=== PATIENT | male | born 1995 | race American Indian/Alaskan Native ===

== ENCOUNTER 2019-04-04 08:48 | Emergency (ER) | payer SELFPAY ==
--- NOTE | 2019-04-04 09:12 | Emergency Department Report ---
ED Rash HPI - HPI Chief Complaint: Skin Rash Stated Complaint: BED BUGS Time Seen by Provider: 04/04/19 08:55 Duration: 3 Days Location: Upper Extremities, Lower Extremities Rash Symptoms: Yes Itching, No Facial Swelling, No Tongue/Oral Swelling, No Breathing Difficulties, No Choking Sensation, No Wheezing/Dyspnea, No Peeling, No Blistering, No Fever, No Lightheaded, No Malaise, No Myalgias Severity: mild Other History: This is a 20-year-old male presents to ED complaining of insect bites to his upper extremities. Patient was at a hotel in [place] where he stayed the add on hotel with 2 of his siblings and mother. All other family members sustained bites from being in this hotel. He denies fevers/chills/nausea vomiting or new symptoms. ED Review of Systems ROS: Stated complaint: BED BUGS Other details as noted in HPI Comment: All other systems reviewed and negative ED Past Medical Hx - Medications Home Medications: Home Medications Medication Instructions Recorded Confirmed Last Taken Type Permethrin 5% [Acticin 5% CREAM] 1 applicatio TP 1XW #1 tube 04/04/19 Unknown Rx Pramoxine HCl/Calamine [Calamine 1 applic TP DAILY #1 lotion 04/04/19 Unknown Rx Medicated Lotion] Triamcinolone 0.5% [Kenalog 0.5% 1 applic TP TID #1 tube 04/04/19 Unknown Rx CREAM] diphenhydrAMINE [Benadryl CAP] 25 mg PO QHS PRN #20 capsule 04/04/19 Unknown Rx Rash Exam - Exam General: Vital signs noted. No distress. Alert and acting appropriately. HEENT: No Periorbital Edema, No Conjuctival Injection, No Chemosis, No Perioral Edema, No Tongue Edema, No Uvular Edema, No Compromised Airway, No Drooling Lungs: Yes Good Air Exchange (Normal Breath Sounds), No Wheezes, No Ronchi, No Stridor, No Cough, No Labored Respirations, No Retractions, No Use of Accessory Muscles, No Other Abnormal Lung Sounds Heart: Yes Regular, No Murmur Skin: Yes Erythema (generalized insect bite felder), No Urticarial Rash, No Maculopapular Rash, No Morbilliform rash, No Bulla(e), No Excoriations, No Weeping, No Tenderness, No Edema, No Encrustations, No Other Other: Positive: Abdomen Normal, Neurologic Normal, Musculoskeletal Normal ED Medical Decision Making - Medical Decision Making 23-year-old male presents with a incident bites mostly associated from bedbugs. he will be treated for bedbugs. 2 members (mother and sister) of the household was treated on Wednesday for bedbugs Vital signs are normal patient is in no acute distress Discussed follow-up with primary care physician. Critical care attestation.: If time is entered above; I have spent that time in minutes in the direct care of this critically ill patient, excluding procedure time. ED Disposition Clinical Impression: Insect bite Disposition: DC-01 TO HOME OR SELFCARE Is pt being admited?: No Does the pt Need Aspirin: No Condition: Stable Instructions: Insect Bite or Sting (ED) Additional Instructions: Make sure to follow up with the primary care physician as discussed. Take all your medications as you've been prescribed. If you have any worsening symptoms or develop new symptoms please return to ED immediately. Referrals: [facility] [Provider Group] - 3-5 Days Forms: Work/School Release Form(ED) Time of Disposition: 09:13
[2019-04-04 09:52] VITALS: BP 128/72
== END 2019-04-04 10:27 | disposition home or self-care (01) ==
LOC: ED 08:48
DX: S40.861A Insect bite (nonvenomous) of right upper arm, initial encounter (principal); Z88.1 Allergy status to other antibiotic agents; S40.862A Insect bite (nonvenomous) of left upper arm, initial encounter; W57.XXXA Bitten or stung by nonvenomous insect and other nonvenomous arthropods, initial encounter; Y93.89 Activity, other specified; Y92.89 Other specified places as the place of occurrence of the external cause; Y99.8 Other external cause status

== ENCOUNTER 2019-07-28 11:59 | Outpatient (CLI) | payer OTHER ==
--- NOTE | 2019-07-28 13:38 | XRay Report ---
Bilateral knee radiographs INDICATION: CHRONIC LYMPHADENITIS. Disability exam. COMPARISON: None. FINDINGS: AP and lateral radiographs of both knees demonstrate intact bony articulation and appearan ce. No suprapatellar effusions. IMPRESSION: No acute osseous or soft tissue abnormality. No significant DJD. Signer Name: Haylee Corona Signed: 07/28/2019 1:33 PM Workstation Name: [id number]
--- NOTE | 2019-07-28 13:41 | XRay Report ---
PELVIS RADIOGRAPHS INDICATION: CHRONIC LYMPHADENITIS. Disability exam. COMPARISON: None. FINDINGS: Frontal pelvic radiograph, 2 images demonstrate intact bony articulation and appearance, i ncluding the SI and hip joints as also the imaged lower lumbar spine. Nonobstructive bowel gas patter n. IMPRESSION: No acute osseous or soft tissue abnormality. No significant DJD. Signer Name: Haylee Corona Signed: 07/28/2019 1:37 PM Workstation Name: [id number]
--- NOTE | 2019-07-28 13:58 | XRay Report ---
CHEST 1 VIEW INDICATION: CHRONIC LYMPHADENITIS. Disability exam. COMPARISON: None similar. FINDINGS: Single, frontal chest radiograph demonstrates normal cardiomediastinal silhouette. Slightly prominent infrahilar lung markings bilaterally, nonspecific. Clear remainder lungs without pleural e ffusions or CHF. Unremarkable bones. IMPRESSION: No definite acute chest process with slightly prominent lung markings inferiorly, as desc ribed. Please also correlate clinically and with more remote chest imaging, if available. Signer Name: Haylee Corona Signed: 07/28/2019 1:54 PM Workstation Name: [id number]
== END 2019-07-28 12:00 | disposition home or self-care (01) ==
LOC: XRAY 11:59
PROVIDERS: ATTEND Internal Medicine
DX: I88.1 Chronic lymphadenitis, except mesenteric (principal)
CPT/HCPCS: 71046; 72170